=== PATIENT | female | born 1960 | race Caucasian/White ===

== ENCOUNTER 2018-02-19 15:38 | Observation (INO) | payer OTHER ==
[~2018-02-19] VITALS: Ht 170.2 cm; Wt 69.5 kg
[2018-02-19 16:10] LABS: BASO % 0.3 % (0.0-2.0); EOS # 0.2 (0.0-0.7); EOS % 2.2 % (0-4.0); GRAN # 6.3 (1.4-6.5); GRAN % 64.7 % (42.2-75.2); HEMATOCRIT 46.5 % (37.0-47.0); HEMOGLOBIN 15.9 g/dl (12.5-16.0); LYMPH # 2.7 (1.2-3.4); LYMPH % 27.8 % (20.0-51.0); MEAN CELL VOLUME 89 fl (80.0-100.0); MEAN CORPUSCULAR HEMOGLOBIN 31 pg (27.0-31.0); MEAN CORPUSCULAR HGB CONC 34 g/dl (33.0-37.0); MEAN PLATELET VOLUME 9.4 fl (7.4-10.4); MONO # 0.5 (0.1-0.6); MONO % 4.7 % (1.7-9.3); PLATELET COUNT 306 K/mm3 (130-400); REDCELL DISTRIBUTION WIDTH-CV 12.6 % (11.5-14.5)
[2018-02-19] MEDS ORDERED: PRIL40 PO (16:11)
[2018-02-19 16:12] LABS: INR 0.9 (0.8-3.0); PROTHROMBIN TIME 9.7 SECONDS (9.7-12.8)
[2018-02-19] MEDS ORDERED: YUVAFEM10 MCG VG (16:17)
[2018-02-19] MEDS ORDERED: VERELAN PM100 MG PO (16:18)
[2018-02-19] MEDS ORDERED: HCTZ12.5TAB PO (16:18)
[2018-02-19] MEDS ORDERED: LIPITOR 10MG10 MG PO (16:19)
[2018-02-19 16:21] LABS: ALANINE AMINOTRANSFERASE 21 U/L (9-52); ALBUMIN 4.7 gm/dL (3.5-5.0); ALKALINE PHOSPHATASE 82 U/L (50-136); ANION GAP 12 mmol/L (7-16); AST,SGOT 26 U/L (15-37); BILIRUBIN,TOTAL 0.4 mg/dL (0.0-1.0); BLOOD UREA NITROGEN 14 mg/dL (7-17); CALCIUM 9.1 mg/dL (8.4-10.2); CARBON DIOXIDE 27 mmol/L (22-30); CHLORIDE 101 mmol/L (98-107); CREATININE, serum 0.86 mg/dL (0.52-1.25); GLUCOSE 105 mg/dL (74-106); POTASSIUM 3.2 mmol/L (3.4-5.0); SODIUM 139 mmol/L (137-145)
[2018-02-19 16:36] LABS: TROPONIN-I < 0.012 ng/mL (0.000-0.034)
[2018-02-19] MEDS ORDERED: VISTARIL 2525 MG/CAP PO (16:49)
[2018-02-19] MEDS ORDERED: SINEQUAN75 MG PO (16:49)
[2018-02-19] MEDS ORDERED: TOPROL XL 25MG25 MG PO (16:49)
[2018-02-19] MEDS ORDERED: TRESIBA FL100 UNIT/1 SQ (16:50)
--- NOTE | 2018-02-19 18:32 | NUR ---
Pt arrived to floor at this time from ER. [facility] to resume care.
--- NOTE | 2018-02-19 19:16 | NUR ---
Report received from Anika RN
--- NOTE | 2018-02-19 19:59 | NUR ---
Resting in bed. Assessment complete. Left lower leg edema +1. Lungs clear. Heart normal. Denies pain. Denies needs. Call light in reach.
[2018-02-19 20:01] VITALS: BP 114/69; PULSE 68; TEMP 99.1
--- NOTE | 2018-02-19 21:45 | NUR ---
Nitro patch right shoulder removed at this time.
[2018-02-20 00:30] VITALS: BP 106/61; PULSE 70; TEMP 98.8
--- NOTE | 2018-02-20 01:37 | NUR ---
Resting in bed. Denies needs. Call light in reach.
[2018-02-20 05:14] VITALS: BP 105/50; PULSE 74; TEMP 98.4
[2018-02-20 07:33] VITALS: BP 124/66; PULSE 66; TEMP 98.8
[2018-02-20 07:35] LABS: ANION GAP 6 mmol/L (7-16); BLOOD UREA NITROGEN 16 mg/dL (7-17); CALCIUM 8.3 mg/dL (8.4-10.2); CARBON DIOXIDE 25 mmol/L (22-30); CHLORIDE 107 mmol/L (98-107); CHOLESTEROL 159 mg/dL (120-200); CHOLESTEROL RISK RATIO 4.6; CREATININE, serum 0.75 mg/dL (0.52-1.25); GLUCOSE 92 mg/dL (74-106); HDL CHOLESTEROL 34 mg/dL; LDL CHOLESTEROL 90 mg/dL; POTASSIUM 3.9 mmol/L (3.4-5.0); SODIUM 139 mmol/L (137-145); TRIGLYCERIDE 177 mg/dL
[2018-02-20 07:45] LABS: TROPONIN-I < 0.012 ng/mL (0.000-0.034)
--- NOTE | 2018-02-20 08:20 | NUR ---
PT is A+OX3, pleasant, talkative, denies SOB, chest pain. Heart regular S1S2. physical assessment completed. IV runnign at 30 cc/hr, RAC site s redness/swelling. Breakfast eaten, call lgt in reach, no further needs
[2018-02-20 11:10] VITALS: BP 127/69; PULSE 77; TEMP 98.2
--- NOTE | 2018-02-20 15:23 | NUR ---
Plan to return home with Spouse Lamar Antunez- . Patient reports that she is fairly independent and uses a ankle brace and knee scooter sometimes. Pt reports that her PCP is Rachna Antunez, and [facility] Patient reports care concerns as not having the testing for her heart done on time and having to wait all day. Patient reports that if it had of been more serious there would have been and issue. Denies any additional concerns or use of other DME. NO additonal needs identified.
[2018-02-20] MEDS ORDERED: ASPIRIN E.C. 8181 MG PO (16:00)
[2018-02-20 16:01] VITALS: BP 131/83; PULSE 69; TEMP 98.5
--- NOTE | 2018-02-20 17:38 | NUR ---
This RN reviewed discharge instrutions with pt, answered all questions, IV removed wih tip intact and site s redness/swelling. Through shift vitals remained stable, pt free of chest pain/palpitations, SOB. at bedside, personal belongings collected and pt escorted to car.
== END 2018-02-20 17:39 | disposition home or self-care (01) ==
LOC: COL.ER 15:38 → MEDICAL 16:59
PROVIDERS: Emergency Medicine; ADMIT Internal Medicine
DX: R07.89 Other chest pain (principal); E87.6 Hypokalemia; I10 Essential (primary) hypertension; K21.9 Gastro-esophageal reflux disease without esophagitis; K58.9 Irritable bowel syndrome, unspecified; E78.5 Hyperlipidemia, unspecified; N80.9 Endometriosis, unspecified; Z79.82 Long term (current) use of aspirin; Z90.710 Acquired absence of both cervix and uterus; Z88.5 Allergy status to narcotic agent; Z82.49 Family history of ischemic heart disease and other diseases of the circulatory system
CPT/HCPCS: G0378; J1650; J7030

== ENCOUNTER → 2018-03-15 | Outpatient (CLI) | payer OTHER ==
[~2018-03-15] MED LIST: ASPIRIN E.C. 8181 MG PO; B COMPLEX #11 TAB PO; CALCIUM/MAGNESI1 T17 PO; COLACE 100100 MG/CAP PO; HCTZ12.5TAB PO; LIPITOR 10MG10 MG PO; NIACIN 64 MG-501 TA1 PO; PRIL40 PO; SINEQUAN75 MG PO; SLEEP AID50 MG PO; TOPROL XL 25MG25 MG PO; TRESIBA FL100 UNIT/1 SQ; VERELAN PM100 MG PO; VISTARIL 2525 MG/CAP PO; YUVAFEM10 MCG VG
== END ==
LOC: ZCOL.LAB 16:08
DX: R30.0 Dysuria (principal)

== ENCOUNTER 2018-04-05 10:54 | Emergency (ER) | payer OTHER ==
[~2018-04-05] VITALS: Ht 167.6 cm; Wt 77.3 kg
[2018-04-05 11:01] VITALS: TEMP 98
[2018-04-05] MEDS ORDERED: FLEXERIL 1010 MG/TAB PO (12:32)
[2018-04-05] MEDS ORDERED: LIDODERM 5% PATC1 EA TP (12:32)
[2018-04-05 13:24] VITALS: BP 128/72; PULSE 80
== END 2018-04-05 13:25 | disposition home or self-care (01) ==
LOC: COL.ER 10:54
DX: S39.012A Strain of muscle, fascia and tendon of lower back, initial encounter (principal); E78.5 Hyperlipidemia, unspecified; K58.9 Irritable bowel syndrome, unspecified; Z90.89 Acquired absence of other organs; Z90.710 Acquired absence of both cervix and uterus; X50.0XXA Overexertion from strenuous movement or load, initial encounter
CPT/HCPCS: J0780; J1885; J2405; J7030

== ENCOUNTER → 2018-04-29 | Outpatient (CLI) | payer OTHER ==
[~2018-04-29] MED LIST changes: +FLEXERIL 1010 MG/TAB PO; +LIDODERM 5% PATC1 EA TP
== END ==
LOC: COL.RAD 10:18
DX: M47.815 Spondylosis without myelopathy or radiculopathy, thoracolumbar region (principal); M41.85 Other forms of scoliosis, thoracolumbar region

== ENCOUNTER → 2018-10-25 | Outpatient (CLI) | payer OTHER ==
[2018-10-25 15:46] LABS: BASO % 0.3 % (0.0-2.0); EOS # 0.2 (0.0-0.7); EOS % 1.7 % (0-4.0); GRAN # 6.6 (1.4-6.5); GRAN % 65.1 % (42.2-75.2); HEMATOCRIT 43.4 % (37.0-47.0); HEMOGLOBIN 14.9 g/dl (12.5-16.0); LYMPH # 2.7 (1.2-3.4); LYMPH % 27.1 % (20.0-51.0); MEAN CELL VOLUME 88 fl (80.0-100.0); MEAN CORPUSCULAR HEMOGLOBIN 30 pg (27.0-31.0); MEAN CORPUSCULAR HGB CONC 34 g/dl (33.0-37.0); MEAN PLATELET VOLUME 9.6 fl (7.4-10.4); MONO # 0.5 (0.1-0.6); PLATELET COUNT 307 K/mm3 (130-400); RED BLOOD COUNT 4.91 M/mm3 (4.10-5.30); REDCELL DISTRIBUTION WIDTH-CV 12.4 % (11.5-14.5)
[2018-10-25 15:49] LABS: PROTHROMBIN TIME 11.1 SECONDS (9.7-12.8)
[2018-10-25 15:55] LABS: ALBUMIN 4.6 gm/dL (3.5-5.0); BILIRUBIN,TOTAL 0.5 mg/dL (0.0-1.0); CALCIUM 8.8 mg/dL (8.4-10.2); CHOLESTEROL RISK RATIO 5.9; CREATININE, serum 0.77 (0.52-1.25); POTASSIUM 3.9 mmol/L (3.4-5.0)
[2018-10-25 15:59] LABS: MUCOUS Present /lpf; PH 6 (5-8); URINE APPEARANCE Clear; URINE BACTERIA Rare /hpf; URINE BILIRUBIN Negative (NEGATIVE); URINE BLOOD Negative (NEGATIVE); URINE COLOR Yellow; URINE GLUCOSE Negative (NEGATIVE); URINE KETONE Negative (NEGATIVE); URINE LEUKOCYTE ESTERASE Negative (NEGATIVE); URINE NITRATE Negative (NEGATIVE); URINE PROTEIN(semi-quant) Negative (NEGATIVE); URINE UROBILINOGEN Negative (NEGATIVE)
[2018-10-25 16:13] LABS: COLLECTION METHOD CLEAN CATCH
== END ==
LOC: COL.RAD 14:53
PROVIDERS: Family Medicine
DX: Z01.818 Encounter for other preprocedural examination (principal); E78.00 Pure hypercholesterolemia, unspecified; I10 Essential (primary) hypertension; M19.079 Primary osteoarthritis, unspecified ankle and foot

== ENCOUNTER → 2019-11-21 | Outpatient (CLI) | payer OTHER | LOC: MC.RAD 14:12 | DX: Z12.31 Encounter for screening mammogram for malignant neoplasm of breast (principal) ==

== ENCOUNTER → 2020-06-26 | Outpatient (CLI) | payer OTHER | LOC: COL.RAD 10:33 | DX: R05 Cough (principal) ==

== ENCOUNTER 2021-06-10 21:58 | Emergency (ER) | payer MEDICARE, OTHER ==
[~2021-06-10] VITALS: Ht 167.6 cm; Wt 80.9 kg
[2021-06-10 22:19] VITALS: TEMP 99.8
[2021-06-10 23:00] LABS: BASO # 0.1 K/mm3 (0.0-0.2); BASO % 0.3 % (0.0-2.0); EOS # 0.2 K/mm3 (0.0-0.7); EOS % 1.4 % (0.0-4.0); GRAN # 13.2 K/mm3 (1.4-6.5); GRAN % 75.6 % (42.2-75.2); HEMATOCRIT 44.3 % (37.0-47.0); HEMOGLOBIN 15.2 g/dl (12.5-16.0); LYMPH # 2.9 K/mm3 (1.2-3.4); LYMPH % 16.7 % (20.0-51.0); MEAN CELL VOLUME 89 fl (80.0-100.0); MEAN CORPUSCULAR HEMOGLOBIN 30 pg (27-31); MEAN CORPUSCULAR HGB CONC 34 g/dl (33.0-37.0); MEAN PLATELET VOLUME 9.3 fl (7.4-10.4); MONO # 0.9 K/mm3 (0.1-0.6); MONO % 5.4 % (1.7-9.3); PLATELET COUNT 299 K/mm3 (130-400); REDCELL DISTRIBUTION WIDTH-CV 12.7 % (11.5-14.5)
[2021-06-10 23:15] LABS: ALBUMIN 4.3 gm/dL (3.4-4.8); BILIRUBIN,TOTAL 0.5 mg/dL (0.2-1.2); CALCIUM 9.1 mg/dL (8.4-10.2); CREATININE, serum 0.85 mg/dL (0.57-1.11); TOTAL PROTEIN 7.2 gm/dL (6.2-8.1)
[2021-06-10 23:27] LABS: COLLECTION METHOD CLEAN CATCH
[2021-06-10 23:47] LABS: PH 7 (5-8); SQUAMOUS EPITHELIAL None Seen /hpf (0-10); URINE APPEARANCE Clear (CLEAR/HAZY); URINE BACTERIA Rare /hpf (NONE SEEN); URINE BILIRUBIN Negative (NEGATIVE); URINE BLOOD Negative (NEGATIVE); URINE COLOR Straw (YELLOW); URINE GLUCOSE Negative (NEGATIVE); URINE KETONE Negative (NEGATIVE); URINE LEUKOCYTE ESTERASE Negative (NEGATIVE); URINE NITRATE Negative (NEGATIVE); URINE PROTEIN(semi-quant) Negative (NEGATIVE); URINE RBC 0-2 /hpf (0-2); URINE UROBILINOGEN Negative (NEGATIVE)
[2021-06-11] MEDS ORDERED: BENTYL 10MG10 MG/CAP PO (02:27)
[2021-06-11] MEDS ORDERED: PEPCID 20MG TAB20 MG PO (02:27)
[2021-06-11] MEDS ORDERED: ZOFRAN ODT4 MG PO (02:27)
[2021-06-11 02:50] VITALS: BP 132/78; PULSE 76
== END 2021-06-11 02:50 | disposition home or self-care (01) ==
LOC: COL.ER 21:58
PROVIDERS: Emergency Medicine
DX: R10.84 Generalized abdominal pain (principal); Z91.040 Latex allergy status; Z20.822 Contact with and (suspected) exposure to COVID-19; Z28.310 Unvaccinated for COVID-19
CPT/HCPCS: J0500; J1885; J7120; Q9967

== ENCOUNTER → 2023-02-16 | Outpatient (CLI) | payer MEDICARE, OTHER ==
[~2023-02-16] MED LIST changes: +BENTYL 10MG10 MG/CAP PO; +PEPCID 20MG TAB20 MG PO; +ZOFRAN ODT4 MG PO
== END ==
LOC: COL.CARD 08:11
DX: I49.3 Ventricular premature depolarization (principal)

== ENCOUNTER → 2023-09-11 | Outpatient (CLI) | payer MEDICARE, OTHER | LOC: MC.RAD 08:09 | DX: Z12.31 Encounter for screening mammogram for malignant neoplasm of breast (principal) ==